=== PATIENT | female | born 1960 | race Caucasian/White ===

== ENCOUNTER → 2017-11-09 | Outpatient (CLI) | payer BC ==
[~2017-11-09] VITALS: Ht 170.2 cm; Wt 95.3 kg
[~2017-11-09] MED LIST: CYMBALTA60 MG PO; LEVO-T100 MCG PO; XANAX0.25 MG PO
== END | disposition home or self-care (01) ==
LOC: AMB 08:50
PROC: 0DB18ZX Excision of Upper Esophagus, Via Natural or Artificial Opening Endoscopic, Diagnostic (ICD-10-PCS; principal; 2017-11-09)
DX: F45.8 Other somatoform disorders (principal)
CPT/HCPCS: 88305